=== PATIENT | female | born 1960 | race Caucasian/White ===

== ENCOUNTER 2016-10-12 16:35 | Emergency (ER) | payer SELFPAY ==
--- NOTE | 2016-10-12 18:04 | Diagnostic Imaging Report ---
MARIANA BRYANT [facility] [address] [facility].[address] [address] Report Submission Date: Oct 12, 2016 5:58:03 PM TOE PUNCHER Patient Study Name: DARRON HERNANDEZ Date: Oct 12, 2016 5:41:52 PM TOE PUNCHER Modality Type: CR Gender: F Description: CHEST : 62 Institution: [facility] Physician: MARIANA BRYANT Chest 2 views History: Cough and emphysema Findings: The superior mediastinal mass is present. The central pulmonary arteries are mildly enlarged. The lungs are mildly hyperinflated. Heart size is normal. There is no pleural effusion. Impression: 1. Superior mediastinal mass or lymphadenopathy. Recommend contrast enhanced chest CT. 2. COPD. 3. Discussed with Dr. Bryant. Electronically signed on Oct 12, 2016 5:58:03 PM TOE PUNCHER by: Marcello CUNHA
[2016-10-12 18:39] LABS: BASOPHILS % 0.9 (0.0-1.5); EOSINOPHILS % 2.5 % (0.0-6.8); LYMPHOCYTES # 1.5 # k/uL (0.6-4.0); MEAN CORPUSCULAR HEMOGLOBIN 35.1 pg (28.0-34.0); MONOCYTES # 0.3 # k/uL (0.0-0.9); MONOCYTES % 4.1 % (0.0-11.0); NEUTROPHILS # 4.2 # k/uL (1.4-7.7)
[2016-10-12 19:00] LABS: eGFR (African) > 60; eGFR (Non-African) > 60
[2016-10-12 21:11] VITALS: BP 137/62
--- NOTE | 2016-10-13 11:15 | Diagnostic Imaging Report ---
MARIANA BRYANT [facility] [address] [facility].[address] [address] Report Submission Date: Oct 12, 2016 7:47:43 PM TESTING LEAD Patient Study Name: DARRON HERNANDEZ Date: Oct 12, 2016 7:18:40 PM TESTING LEAD Modality Type: CT\SR Gender: F Description: CT CHEST W/ CONTRAST : 62 Institution: [facility] Physician: MARIANA BRYANT CT chest with contrast. History: Cough for several days with difficulty breathing , history of emphysema. Technique: Transaxial computed tomography images of the chest were obtained with intravenous contrast cord to standard protocol. Findings: The heart size is normal. There is a large infiltrative mediastinal mass in the right paratracheal regionand middle mediastinum extending to the right hilum. It encases the right main pulmonary artery and right mainstem bronchus. Also appears to partially encase and result in severe narrowing of the superior vena cava. This is most consistent with primary bronchogenic malignancy. This also enlarged right hilar lymph nodes present. Also an enlarged prevascular lymph nodes and right supraclavicular adenopathy. There is no pleural effusion or pneumothorax. There is a 7 mm nodule in the right upper lobe present and a 7 mm subpleural right upper lobe nodule also present. Limited views of the upper abdomen demonstrate diffuse hepatic steatosis. No focal liver lesion is identified. There is mild left adrenal gland thickening noted. The osseous structures are free of suspicious lesion. Impression: 1. Large infiltrative mediastinal and right hilar mass resulting in encasement and narrowing of the right main pulmonary artery, superior vena cava right mainstem bronchus. This is most consistent with primary malignancy. 2. Two 7mm right upper lobe pulmonary nodules are also present. Electronically signed on Oct 12, 2016 7:47:43 PM TESTING LEAD by: Robert Jeffers The following text is a previous version of the current report for this study. CT chest with contrast. History: Cough for several days with difficulty breathing , history of emphysema. Technique: Transaxial computed tomography images of the chest were obtained with intravenous contrast cord to standard protocol. Findings: The heart size is normal. There is a large infiltrative mediastinal mass in the right paratracheal regionand middle mediastinum extending to the right hilum. It encases the right main pulmonary artery and right mainstem bronchus. Also appears to partially encase and result in severe narrowing of the superior vena cava. This is most consistent with primary bronchogenic malignancy. This also enlarged right hilar lymph nodes present. Also an enlarged prevascular lymph nodes and right supraclavicular adenopathy. There is no pleural effusion or pneumothorax. No peripheral infiltrate or nodule is identified. Limited views of the upper abdomen demonstrate diffuse hepatic steatosis. No focal liver lesion is identified. There is mild left adrenal gland thickening noted. The osseous structures are free of suspicious lesion. Impression: 1. Large infiltrative mediastinal and right hilar mass resulting in encasement and narrowing of the right main pulmonary artery, superior vena cava right mainstem bronchus. This is most consistent with primary malignancy. 2. No peripheral infiltrate or nodule identified. Prior version electronically signed by Robert Jeffers on October 12, 2016 7:36:00 PM ILDA CUNHA
--- NOTE | 2016-10-13 13:04 | ED Physician Documentation ---
Upper Respiratory Symptoms - HISTORIAN Historian: patient - HPI Stated Complaint: COUGH/RUNNY NOSE Chief Complaint: Cough/ Upper Respiratory Additional Information: has felt a pressure sensation in chest for 6 months Onset: days ago (21) Duration: sudden-Onset Context: denies: recent foreign travel, insect bite(s), tick(s), recent chemotherapy, multiple patients, same sx Severity: mild Associated Symptoms: runny nose, sinus drainage, productive cough, hurts to breathe. denies: fever, chills, sweating, earache, sinus pain, sore throat, hoarseness, allergy, hay fever, chest pain, bloody cough, shortness of breath, headache Worsened by Deep Breath: Yes Further Comments: no - ROS CONST/EYES: weakness CVS/RESP: chest pain LYMPH: denies: leg swelling, rash, swollen glands, ankle swelling GI/: none NEURO/PSYCH: denies: fainting, dizziness, confusion, anxiety, depression MS/SKIN: denies: joint pain, muscle aches, rash - PAST HX Lung Disease: COPD PE Risk Factors: hypertension Other History: hypertension, other (hypothyroidism) Surgeries/Procedures: none Immunizations: referred to PCP Allergies/Adverse Reactions: Allergies Allergy/AdvReac Type Severity Reaction Status Date / Time No Known Allergies Allergy Verified 02/11/16 21:51 Home Medications: Ambulatory Orders Medication Instructions Recorded Metoprolol Tartrate [Lopressor] 25 mg PO BID 10/12/16 - SOCIAL HX Smoking History: cigarettes Alcohol Use: none Drug Use: none - FAMILY HX Family History: other (son just with cancer) - VITAL SIGNS Vital Signs: Vital Signs Temp Pulse Resp BP Pulse Ox 99.1 F 68 22 137/62 95 10/12/16 20:35 10/12/16 20:35 10/12/16 20:35 10/12/16 20:35 10/12/16 20:35 - REVIEWED ASSESSMENTS Nursing Assessment Reviewed: No Vitals Reviewed: No Progress - Results/Orders Results/Orders: cbc, cmp, pt/ptt/inr, cxr, ct chest, flu a and b, strep screen ordered ordered - Progress Progress: pt. stable entire time in er Critical Care Note - Critical Care Note Total Time (mins): 0 ED Results Lab/Radiology - Lab Results Lab Results: Lab Results 10/12/16 10/12/16 10/12/16 18:35 18:35 18:35 WBC 6.20 K/ul K/ul (4.00-12.00) RBC 4.36 M/ul M/ul (3.90-5.20) Hgb 15.3 g/dL g/dL (12.0-16.0) Hct 45.6 % % (34.5-46.5) MCV 104.4 fl H fl (80.0-100.0) MCH 35.1 pg H pg (28.0-34.0) MCHC 33.7 g/dL g/dL (30.0-36.0) RDW 13.8 % % (11.3-14.3) Plt Count 218 K/mm3 K/mm3 (130-400) Neut % (Auto) 67.6 % % (39.0-79.0) Lymph % (Auto) 23.9 % % (16.0-50.0) [place] % (Auto) 4.1 % % (0.0-11.0) Eos % (Auto) 2.5 % % (0.0-6.8) Baso % (Auto) 0.9 (0.0-1.5) Neut # 4.2 # k/uL # k/uL (1.4-7.7) Lymph # 1.5 # k/uL # k/uL (0.6-4.0) [place] # 0.3 # k/uL # k/uL (0.0-0.9) Eos # 0.2 # k/uL # k/uL (0.0-0.6) Baso # 0.1 # k/uL # k/uL (0.0-0.5) Reactive Lymphs % 1.0 % % (0.0-5.0) Reactive Lymphs # 0.1 # k/uL # k/uL (0.0-0.8) PT 10.5 Seconds Seconds (9.7-11.5) INR 1.0 (0.9-1.1) APTT 24.5 Seconds Seconds (24.5-32.8) Sodium 139 mmol/L mmol/L (136-145) Potassium 4.3 mmol/L mmol/L (3.5-5.0) Chloride 101 mmol/L mmol/L (98-110) Carbon Dioxide 29 mmol/L mmol/L (20-32) BUN 9 mg/dL L mg/dL (10-26) Creatinine 0.6 mg/dL mg/dL (0.4-1.5) Estimated Creat Clear 129 Est GFR ( Amer) > 60 (60 - ) Est GFR (Non-Af Amer) > 60 (60 - ) Glucose 104 mg/dL H mg/dL (70-99) Calcium 10.4 mg/dL mg/dL (8.5-10.5) Total Bilirubin 0.6 mg/dL mg/dL (0.2-1.2) AST 35 U/L U/L (0-41) ALT 27 U/L U/L (0-45) Alkaline Phosphatase 105 U/L U/L (46-116) Total Protein 8.0 g/dL g/dL (6.0-8.5) Albumin 4.7 g/dL g/dL (3.0-5.5) Influenza Type A Ag Influenza Type B Ag Group A Strep Screen 10/12/16 10/12/16 17:30 17:30 WBC RBC Hgb Hct MCV MCH MCHC RDW Plt Count Neut % (Auto) Lymph % (Auto) [place] % (Auto) Eos % (Auto) Baso % (Auto) Neut # Lymph # [place] # Eos # Baso # Reactive Lymphs % Reactive Lymphs # PT INR APTT Sodium Potassium Chloride Carbon Dioxide BUN Creatinine Estimated Creat Clear Est GFR ( Amer) Est GFR (Non-Af Amer) Glucose Calcium Total Bilirubin AST ALT Alkaline Phosphatase Total Protein Albumin Influenza Type A Ag Negative (NEGATIVE) Influenza Type B Ag Negative (NEGATIVE) Group A Strep Screen Negative (NEGATIVE) - Radiology Radiology Impressions: cxr, ct chest shows large lung/mediastinal mass - Orders Orders: ED Orders Category Date Time Status Place Saline Lock/IV Now Care 10/12/16 18:24 Active CHEST P.A.&LAT 2 VIEWS [RAD] Stat Exams 10/12/[address] CHEST W/ CONTRAST Stat Exams 10/12/16 Completed CBC/PLATELET/DIFF Routine Lab 10/12/16 18:35 Completed CMP Routine Lab 10/12/16 18:35 Completed GRP A STREP SCREEN Routine Lab 10/12/16 17:30 Completed INFLUENZA A&B Routine Lab 10/12/16 17:30 Completed PT-INR Routine Lab 10/12/16 18:35 Completed PTT Routine Lab 10/12/16 18:35 Completed THROAT CULTURE Routine Lab 10/12/16 17:30 Received Upper Respiratory Symptoms - EXAM General Appearance: alert, mild distress EENT: eyes nml inspection, nml ENT inspection, lids & conjunct. nml, PERRL, ear nml Neck: lymphadenopathy (bilateral supraclavicular area) Respiratory: no resp. distress, breath sounds nml, speaks full sentences Abdomen: non-tender, no organomegaly, nml bowel sounds, no distention CVS: reg rate & rhythm, heart sounds normal, equal pulses Skin: color nml, no rash, warm,dry Extremities: non-tender, normal range of motion, no evidence of injury Neuro/Psych: oriented x3, neuro intact, mood/affect nml Discharge Clincal Impression: Lung cancer Qualifiers: Laterality: right Lung location: upper lobe of lung Qualified Code(s): C34.11 - Malignant neoplasm of upper lobe, right bronchus or lung Referrals: Allyson Kaur MD [Primary Care Provider] - 2 Days Home Medications: Ambulatory Orders Metoprolol Tartrate [Lopressor] 25 mg PO BID 10/12/16 Comments: discharged in stable condition with recommendation to follow up in [facility] primary care for referral to oncologist Condition: Stable Disposition: 01 HOME, SELF-CARE Decision to Admit: NO Decision Time: 20:35
== END 2016-10-12 20:35 | disposition home or self-care (01) ==
LOC: ED 16:35
DX: C34.11 Malignant neoplasm of upper lobe, right bronchus or lung (principal)
CPT/HCPCS: 71020; 71260; 80053; 85025; 85610; 85730; 87070; 87400; 87880; Q9966; 99283; S1016

== ENCOUNTER 2017-05-31 19:54 | Emergency (ER) | payer OTHER ==
--- NOTE | 2017-05-31 20:44 | ED Physician Documentation ---
General Adult - HISTORIAN Historian: patient - HPI Stated Complaint: Right flank pain Chief Complaint: General Adult Additional Information: 3 days right flank ache worse with cough, deep breath, movement of torso, walking. Radiates from shoulder blade to thigh. 1 day of spot in the same area that is painful to touch. Has small cell lung cancer and is "afraid it has gone to some thing else." - ROS CONST: no problems - PAST HX Past History: COPD, other (small cell lung cancer) Allergies/Adverse Reactions: Allergies Allergy/AdvReac Type Severity Reaction Status Date / Time No Known Allergies Allergy Verified 05/31/17 20:10 Home Medications: Ambulatory Orders Medication Instructions Recorded Budesonide/Formoterol Fumarate 2 puff INH Q12 05/31/17 [Symbicort 160-4.5 Mcg Inhaler] Ergocalciferol (Vitamin D2) 50,000 unit PO WEEK 05/31/17 [Vitamin D2] Levothyroxine Sodium [Synthroid] 100 mcg PO DAILY 05/31/17 Losartan Potassium [Cozaar] 100 mg PO DAILY 05/31/17 Sertraline HCl [Zoloft] 100 mg PO DAILY 05/31/17 amLODIPine BESYLATE [Norvasc] 10 mg PO DAILY 05/31/17 clonazePAM [Klonopin] 0.5 mg PO TID PRN 05/31/17 - SOCIAL HX Smoking History: cigarettes - FAMILY HX Family History: No - VITAL SIGNS Vital Signs: Vital Signs Temp Pulse Resp BP Pulse Ox 99.1 F 76 18 114/83 05/31/17 19:55 05/31/17 19:55 05/31/17 19:55 05/31/17 19:55 - REVIEWED ASSESSMENTS Nursing Assessment Reviewed: Yes Vitals Reviewed: Yes Progress - Progress Progress: History: RT. SIDED RIB PAIN. BONE TENDERNESS OF POSTERIOR-LATERAL 5TH AND 6TH RIBS, COUGH WITH HX. OF COPD (Hx) / BONE TENDERNESS ON 5TH AND 6TH POSTERIOR- LATERAL ON RT. SIDE (DICOM Hx) / BONE TENDERNESS ON 5TH AND 6TH POSTERIOR- LATERAL ON RT. SIDE (Pt comments) Findings: Comparison with October 12, 2016 again demonstrates chronic emphysematous lung parenchymal changes and somewhat hyperinflated lungs. The cardiac and mediastinal silhouettes are stable. Trachea is midline and the aortic arch contour is normal. No infiltrate or pneumothorax is identified. No acute right rib fracture is identified. Impression: Chronic emphysematous changes. No acute right rib fracture. Electronically signed on May 31, 2017 9:15:45 PM CDT by: Deon Somers ED Results Lab/Radiology - Orders Orders: ED Orders Category Date Time Status RIBS UNILATERAL W/ PA CHEST [RAD] Stat Exams 05/31/17 Ordered UA [URINALYSIS] Routine Lab 05/31/17 Ordered General Adult Physical Exam - PHYSICAL EXAM GENERAL APPEARANCE: mild distress (worried) EENT: eye inspection normal NECK: normal inspection, supple RESPIRATORY: no resp distress, wheezes (fine), other (decreased throughout. Quite tender to palpation over 5 or 6 rib, posterolaterally) CVS: reg rate & rhythm, heart sounds normal BACK: normal inspection SKIN: warm/dry EXTREMITIES: no evidence of injury NEURO: CN's nml as tested, motor nml, sensation nml, cognition normal Discharge Clincal Impression: Muscle strain of chest wall Referrals: Allyson Kaur MD [Primary Care Provider] - 2 Days Condition: Good Disposition: 01 HOME, SELF-CARE Decision to Admit: NO Decision Time: 21:30
[2017-05-31 21:39] VITALS: BP 118/82
--- NOTE | 2017-05-31 22:43 | Diagnostic Imaging Report ---
JAVID JOHN - DAINE [facility] [address] [facility] [address] [place], [place]. [address] Report Submission Date: May 31, 2017 9:15:45 PM CDT Patient Study Name: DARRON HERNANDEZ Date: May 31, 2017 8:36:22 PM CDT Modality Type: CR Gender: F Description: CHEST : 62 Institution: [facility] Physician: JAVID JOHN - DIANE Chest 1 view with right ribs Date of Exam: May 31, 2017. History: RT. SIDED RIB PAIN. BONE TENDERNESS OF POSTERIOR-LATERAL 5TH AND 6TH RIBS, COUGH WITH HX. OF COPD (Hx) / BONE TENDERNESS ON 5TH AND 6TH POSTERIOR- LATERAL ON RT. SIDE (DICOM Hx) / BONE TENDERNESS ON 5TH AND 6TH POSTERIOR- LATERAL ON RT. SIDE (Pt comments) Findings: Comparison with October 12, 2016 again demonstrates chronic emphysematous lung parenchymal changes and somewhat hyperinflated lungs. The cardiac and mediastinal silhouettes are stable. Trachea is midline and the aortic arch contour is normal. No infiltrate or pneumothorax is identified. No acute right rib fracture is identified. Impression: Chronic emphysematous changes. No acute right rib fracture. Electronically signed on May 31, 2017 9:15:45 PM CDT by: Deon CUNHA
[2017-06-01 05:28] LABS: APPEARANCE,URINE CLEAR (CLEAR); COLOR,URINE YELLOW (YELLOW); OCCULT BLOOD,URINE NEGATIVE (NEGATIVE); UROBILINOGEN URINE 0.2 Eu (0.2-1.0)
== END 2017-05-31 21:35 | disposition home or self-care (01) ==
LOC: ED 19:54
DX: R07.1 Chest pain on breathing (principal)
CPT/HCPCS: 71101; 81002; 99283